=== PATIENT | male | born 1950 | race Caucasian/White ===

== ENCOUNTER 2017-04-11 07:02 | Observation (INO) | payer MEDICARE, OTHER ==
[2017-04-11] MEDS: Sodium Chloride 0.9% 500 ML IV ONE ×2 (08:59→09:57)
--- NOTE | 2017-04-11 09:05 | EDM.PDOC ---
ED HPI GENERAL MEDICAL PROBLEM - General Chief Complaint: Neuro Symptoms/Deficits Stated Complaint: POSSIBLE STROKE Time Seen by Provider: 04/11/17 08:00 Source of Information: Reports: Patient History Limitations: Reports: No Limitations - History of Present Illness INITIAL COMMENTS - FREE TEXT/NARRATIVE: According to patient's girl friend, Pt drink 2-3 Bacardi every day. But yesterday had drunk 5-6 drinks and as usual went to bed. He woke up in the morning and felt thigh in his throat and next thing patient was shaking hard and he was froathing form his mouth got stiff and thigh for few minutes and went limp and was unresponsive. Girl friend called 911. Pt was breathing but unresponsive for some time,. Later he woke up and was confused. By the time EMTwas at site, patient was awake, but appeared very confused. Vitals stable. C/o right upper back pain. According to patient,he claims that had several drinks last evening and then went out, ate some steak at local restaurant, and went to bed. The next thing he remembers is being around it program engagement director in the ambulance. He did not know what had happened. Onset: Today Onset Date: 04/11/17 Onset Time: 06:30 Severity: Mild Improves with: Reports: None Worsens with: Reports: None Associated Symptoms: Reports: Confusion, Seizure. Denies: Chest Pain, Cough, Fever/Chills, Headaches, Nausea/Vomiting, Rash, Shortness of Breath, Syncope, Weakness - Related Data Allergies Allergy/AdvReac Type Severity Reaction Status Date / Time No Known Allergies Allergy Verified 04/11/17 08:46 Home Meds: Home Meds Allopurinol [Allopurinol] 300 mg PO DAILY 04/11/17 [History] Aspirin 81 mg PO DAILY 04/11/17 [History] Lisinopril/Hydrochlorothiazide [Lisinopril-Hctz 10-12.5 mg Tab] 1 each PO DAILY 04/11/17 [History] Omeprazole 10 mg PO DAILY 04/11/17 [History] amLODIPine [Norvasc] 10 mg PO DAILY 04/11/17 [History] ED ROS GENERAL - Review of Systems Review Of Systems: See Below Constitutional: Denies: Fever, Chills HEENT: Denies: Eye Discharge, Sinus Problem, Throat Pain, Throat Swelling, Vertigo, Vision Change Respiratory: Denies: Shortness of Breath, Wheezing, Pleuritic Chest Pain, Cough , Sputum Cardiovascular: Denies: Chest Pain, Dyspnea on Exertion, Edema, Lightheadedness GI/Abdominal: Denies: Abdominal Pain, Constipation, Distension, Nausea, Vomiting Skin: Denies: Pruritis, Rash Neurological: Reports: Confusion, Seizure. Denies: Dizziness, Headache, Numbness, Paresthesia, Syncope, Tingling, Tremors, Trouble Speaking, Difficulty Walking Psychiatric: Denies: Agitation, Anxiety ED EXAM, GENERAL - Physical Exam Exam: See Below Exam Limited By: No Limitations General Appearance: Alert, WD/WN, No Apparent Distress, Other (presently pt is not confused) Eye Exam: Bilateral Eye: EOMI, PERRL Ears: Normal External Exam, Normal Canal, Hearing Grossly Normal, Normal TMs Ear Exam: Bilateral Ear: Auricle Normal, Canal Normal, TM normal Nose: Normal Inspection, Normal Mucosa, No Blood Throat/Mouth: Normal Inspection, Normal Lips, Normal Teeth, Normal Gums, Normal Oropharynx, Normal Voice, No Airway Compromise Head: Atraumatic, Normocephalic Neck: Normal Inspection, Supple, Non-Tender, Full Range of Motion Respiratory/Chest: No Respiratory Distress, Lungs Clear, Normal Breath Sounds, No Accessory Muscle Use, Chest Non-Tender Cardiovascular: Normal Peripheral Pulses, Regular Rate, Rhythm, No Edema, No Gallop, No JVD, No Murmur, No Rub GI/Abdominal: Normal Bowel Sounds, Soft, Non-Tender, No Organomegaly, No Distention, No Abnormal Bruit, No Mass Back Exam: Normal Inspection, Full Range of Motion, Muscle Spasm (rigth upper back) Extremities: Normal Inspection, Normal Range of Motion, Non-Tender, Normal Capillary Refill, No Pedal Edema Neurological: Alert, Oriented, CN II-XII Intact, Normal Cognition, Normal Gait, Normal Reflexes, No Motor/Sensory Deficits, Other (pt is not confused) Psychiatric: Normal Affect, Normal Mood Skin Exam: Warm, Dry, Intact, Normal Color, No Rash Course - Vital Signs Text/Narrative:: Pt has been alert and oriented in the emergency room. He is answering questions appropriately, but cannot remember thing like what had happened today morning. He does appear to have had a seizure episode. His alcohol level is 4. His sodium is 127 and chloride is 87, magnesium is 1.2 which is low. CBC is normal. Rest of the CMP is normal. His phosphorus, PT and PTT are normal, urine drug screen is negative. Pt's CT head appears normal. Pt was started on Normal saline and has receive 500 bolus already. Considering his low sodium , he will receive another 1 litre. His magnesium is low which does happen in alcoholic. Did start him on oral magnesium 400mg BID. As this is the first witnessed seizure, and this could be asso with his excessive drinking , low sodium or magnesium, we have replenished his electrolytes hence he has not been started on seizure medications. Did repeat Electrolyte after 2 litres of saline. His sodium is 125, Chloride up to 91. His creat is down to 1.1 within normal limits. As his sodium has dropped , probably from excessive fluid volume. Plan is to admit patient under observation and correct sodium slowly. Pt has not had any seizure over the past 4 hrs he has been in the emergency room. Will recheck BMP in the morning. Last Recorded V/S: Last Vital Signs Temp 98.1 F 04/11/17 08:34 Pulse 104 H 04/11/17 11:57 Resp 16 04/11/17 11:57 BP 119/56 L 04/11/17 11:57 Pulse Ox 98 04/11/17 11:57 - Orders/Labs/Meds Orders: Active Orders 24 hr Category Date Time Status Head wo Cont [CT] Stat Exams 04/11/17 07:56 Taken Magnesium Oxide Med 04/11/17 09:15 Active 400 mg PO BID Medication Orders Magnesium Oxide (Magnesium Oxide) 400 mg PO BID [facility] Last Admin: 04/11/17 09:36 Dose: 400 mg Labs: Laboratory Tests 04/11/17 04/11/17 04/11/17 Range/Units 08:12 08:12 08:12 WBC 10.3 (4.0-11.0) K/uL RBC 4.58 (4.50-6.50) M/uL Hgb 15.0 (13.0-18.0) g/dL Hct 40.6 (40.0-54.0) % MCV 89 (76-96) fL MCH 32.8 H (27.0-32.0) pg MCHC 36.9 H (31.0-35.0) g/dL RDW 13.4 (11.0-16.0) % Plt Count 249 (150-400) K/uL MPV 9.1 (6.0-10.0) fL Neut % (Auto) 81.4 H (45.0-70.0) % Lymph % (Auto) 11.0 L (20.0-40.0) % Catron % (Auto) 6.2 (3.0-10.0) % Eos % (Auto) 1.3 (1.0-5.0) % Baso % (Auto) 0.1 (0.0-0.5) % Neut # (Auto) 8.34 H (2.00-7.50) K/uL Lymph # (Auto) 1.13 L (1.50-4.00) K/uL Catron # (Auto) 0.64 (0.20-0.80) K/uL Eos # (Auto) 0.13 (0.04-0.40) K/uL Baso # (Auto) 0.01 L (0.02-0.10) K/uL PT 10.2 (9.0-11.5) sec INR 1.0 (1.0-3.5) APTT (27.0-35.0) SECONDS Sodium 127 L (136-145) mmol/L Potassium 3.5 (3.5-5.1) mmol/L Chloride 87 L* (98-107) mmol/L Carbon Dioxide 21.9 (21.0-32.0) mmol/L Anion Gap 21.6 H (5.0-15.0) mmol/L BUN 17 (8-26) mg/dL Creatinine 1.41 H (0.70-1.30) mg/dL Est Cr Clr Drug Dosing 49.18 mL/min Estimated GFR (MDRD) 50 L (>60) MLS/MIN BUN/Creatinine Ratio 12.1 (6-25) Glucose 109 H (74-100) mg/dL Calcium 8.9 (8.5-10.1) mg/dL Phosphorus (2.5-4.9) mg/dL Magnesium (1.8-2.4) mg/dL Total Bilirubin 0.7 (0.0-1.0) mg/dL AST 30 (15-37) U/L ALT 30 (12-78) U/L Alkaline Phosphatase 106 (46-116) U/L Total Protein 7.6 (6.4-8.2) g/dL Albumin 3.6 (3.4-5.0) g/dL Globulin 4.0 (2.2-4.2) g/dL Albumin/Globulin Ratio 0.9 (0.8-2.0) Urine Opiates Screen (NEGATIVE) Ur Oxycodone Screen (NEGATIVE) Urine Methadone Screen (NEGATIVE) U Acetaminophen Screen (NEGATIVE) Ur Barbiturates Screen (NEGATIVE) Ur Tricyclics Screen (NEGATIVE) Ur Phencyclidine Scrn (NEGATIVE) Ur Amphetamine Screen (NEGATIVE) U Methamphetamines Scrn (NEGATIVE) U Benzodiazepines Scrn (NEGATIVE) U Cocaine Metab Screen (NEGATIVE) U Marijuana (THC) Screen (NEGATIVE) Ethyl Alcohol (0.0-0.0) mg/dL 04/11/17 04/11/17 04/11/17 Range/Units 08:13 08:13 08:14 WBC (4.0-11.0) K/uL RBC (4.50-6.50) M/uL Hgb (13.0-18.0) g/dL Hct (40.0-54.0) % MCV (76-96) fL MCH (27.0-32.0) pg MCHC (31.0-35.0) g/dL RDW (11.0-16.0) % Plt Count (150-400) K/uL MPV (6.0-10.0) fL Neut % (Auto) (45.0-70.0) % Lymph % (Auto) (20.0-40.0) % Catron % (Auto) (3.0-10.0) % Eos % (Auto) (1.0-5.0) % Baso % (Auto) (0.0-0.5) % Neut # (Auto) (2.00-7.50) K/uL Lymph # (Auto) (1.50-4.00) K/uL Catron # (Auto) (0.20-0.80) K/uL Eos # (Auto) (0.04-0.40) K/uL Baso # (Auto) (0.02-0.10) K/uL PT (9.0-11.5) sec INR (1.0-3.5) APTT 25.8 L (27.0-35.0) SECONDS Sodium (136-145) mmol/L Potassium (3.5-5.1) mmol/L Chloride (98-107) mmol/L Carbon Dioxide (21.0-32.0) mmol/L Anion Gap (5.0-15.0) mmol/L BUN (8-26) mg/dL Creatinine (0.70-1.30) mg/dL Est Cr Clr Drug Dosing mL/min Estimated GFR (MDRD) (>60) MLS/MIN BUN/Creatinine Ratio (6-25) Glucose (74-100) mg/dL Calcium (8.5-10.1) mg/dL Phosphorus 2.8 (2.5-4.9) mg/dL Magnesium 1.3 L (1.8-2.4) mg/dL Total Bilirubin (0.0-1.0) mg/dL AST (15-37) U/L ALT (12-78) U/L Alkaline Phosphatase (46-116) U/L Total Protein (6.4-8.2) g/dL Albumin (3.4-5.0) g/dL Globulin (2.2-4.2) g/dL Albumin/Globulin Ratio (0.8-2.0) Urine Opiates Screen (NEGATIVE) Ur Oxycodone Screen (NEGATIVE) Urine Methadone Screen (NEGATIVE) U Acetaminophen Screen (NEGATIVE) Ur Barbiturates Screen (NEGATIVE) Ur Tricyclics Screen (NEGATIVE) Ur Phencyclidine Scrn (NEGATIVE) Ur Amphetamine Screen (NEGATIVE) U Methamphetamines Scrn (NEGATIVE) U Benzodiazepines Scrn (NEGATIVE) U Cocaine Metab Screen (NEGATIVE) U Marijuana (THC) Screen (NEGATIVE) Ethyl Alcohol (0.0-0.0) mg/dL 04/11/17 04/11/17 04/11/17 Range/Units 08:15 08:18 11:00 WBC (4.0-11.0) K/uL RBC (4.50-6.50) M/uL Hgb (13.0-18.0) g/dL Hct (40.0-54.0) % MCV (76-96) fL MCH (27.0-32.0) pg MCHC (31.0-35.0) g/dL RDW (11.0-16.0) % Plt Count (150-400) K/uL MPV (6.0-10.0) fL Neut % (Auto) (45.0-70.0) % Lymph % (Auto) (20.0-40.0) % Catron % (Auto) (3.0-10.0) % Eos % (Auto) (1.0-5.0) % Baso % (Auto) (0.0-0.5) % Neut # (Auto) (2.00-7.50) K/uL Lymph # (Auto) (1.50-4.00) K/uL Catron # (Auto) (0.20-0.80) K/uL Eos # (Auto) (0.04-0.40) K/uL Baso # (Auto) (0.02-0.10) K/uL PT (9.0-11.5) sec INR (1.0-3.5) APTT (27.0-35.0) SECONDS Sodium 125 L (136-145) mmol/L Potassium 3.8 (3.5-5.1) mmol/L Chloride 91 L (98-107) mmol/L Carbon Dioxide 24.3 (21.0-32.0) mmol/L Anion Gap 13.5 (5.0-15.0) mmol/L BUN 17 (8-26) mg/dL Creatinine 1.10 D (0.70-1.30) mg/dL Est Cr Clr Drug Dosing 63.05 mL/min Estimated GFR (MDRD) > 60 (>60) MLS/MIN BUN/Creatinine Ratio 15.5 (6-25) Glucose 107 H (74-100) mg/dL Calcium 8.3 L (8.5-10.1) mg/dL Phosphorus (2.5-4.9) mg/dL Magnesium (1.8-2.4) mg/dL Total Bilirubin (0.0-1.0) mg/dL AST (15-37) U/L ALT (12-78) U/L Alkaline Phosphatase (46-116) U/L Total Protein (6.4-8.2) g/dL Albumin (3.4-5.0) g/dL Globulin (2.2-4.2) g/dL Albumin/Globulin Ratio (0.8-2.0) Urine Opiates Screen Negative (NEGATIVE) Ur Oxycodone Screen Negative (NEGATIVE) Urine Methadone Screen Negative (NEGATIVE) U Acetaminophen Screen Negative (NEGATIVE) Ur Barbiturates Screen Negative (NEGATIVE) Ur Tricyclics Screen Negative (NEGATIVE) Ur Phencyclidine Scrn Negative (NEGATIVE) Ur Amphetamine Screen Negative (NEGATIVE) U Methamphetamines Scrn Negative (NEGATIVE) U Benzodiazepines Scrn Negative (NEGATIVE) U Cocaine Metab Screen Negative (NEGATIVE) U Marijuana (THC) Screen Negative (NEGATIVE) Ethyl Alcohol 4.0 H (0.0-0.0) mg/dL Meds: Medications Generic Name Dose Route Start Last Admin Trade Name Freq PRN Reason Stop Dose Admin Magnesium Oxide 400 mg 04/11/17 09:15 04/11/17 09:36 Magnesium Oxide PO 400 mg BID HEATHER Administration Discontinued Medications Generic Name Dose Route Start Last Admin Trade Name Freq PRN Reason Stop Dose Admin Cyclobenzaprine HCl 10 mg 04/11/17 09:29 04/11/17 09:37 Flexeril PO 04/11/17 09:30 10 mg ONETIME ONE Administration Cyclobenzaprine HCl Confirm 04/11/17 09:33 Flexeril Administered 04/11/17 09:34 Dose 10 mg .ROUTE .STK-MED ONE Sodium Chloride 500 mls @ 500 mls/hr 04/11/17 08:55 04/11/17 09:57 Normal Saline IV 04/11/17 09:54 500 mls/hr .BOLUS ONE Administration Ibuprofen 800 mg 04/11/17 09:09 04/11/17 09:37 Motrin PO 04/11/17 09:10 800 mg ONETIME ONE Administration Ibuprofen Confirm 04/11/17 09:11 Motrin Administered 04/11/17 09:12 Dose 800 mg .ROUTE .STK-MED ONE Departure - Departure Time of Disposition: 12:15 Disposition: Refer to Observation Condition: Fair Clinical Impression: Seizure, Hyponatremia, Hypomagnesemia - Discharge Information - Problem List & Annotations (1) Seizure SNOMED Code(s): 69603965 Code(s): R56.9 - UNSPECIFIED CONVULSIONS Status: Acute Current Visit: Yes (2) Hyponatremia SNOMED Code(s): 27341512 Code(s): E87.1 - HYPO-OSMOLALITY AND HYPONATREMIA Status: Acute Current Visit: Yes (3) Hypomagnesemia SNOMED Code(s): 786029902 Code(s): E83.42 - HYPOMAGNESEMIA Status: Acute Current Visit: Yes - Problem List Review Problem List Initiated/Reviewed/Updated: Yes - My Orders Last 24 Hours: My Active Orders 04/11/17 07:56 Head wo Cont [CT] Stat 04/11/17 09:15 Magnesium Oxide 400 mg PO BID - Assessment/Plan Admission H&P: Please use this note as an admission H&P Last 24 Hours: My Active Orders 04/11/17 07:56 Head wo Cont [CT] Stat 04/11/17 09:15 Magnesium Oxide 400 mg PO BID Assessment:: First Seizure episode Hyponatremia Hypomagnesemia Plan: Pt has been alert and oriented in the emergency room. He is answering questions appropriately, but cannot remember thing like what had happened today morning. He does appear to have had a seizure episode. His alcohol level is 4. His sodium is 127 and chloride is 87, magnesium is 1.2 which is low. CBC is normal. Rest of the CMP is normal. His phosphorus, PT and PTT are normal, urine drug screen is negative. Pt's CT head appears normal. Pt was started on Normal saline and has receive 500 bolus already. Considering his low sodium , he will receive another 1 litre. His magnesium is low which does happen in alcoholic. Did start him on oral magnesium 400mg BID. As this is the first witnessed seizure, and this could be asso with his excessive drinking , low sodium or magnesium, we have replenished his electrolytes hence he has not been started on seizure medications. Did repeat Electrolyte after 2 litres of saline. His sodium is 125, Chloride up to 91. His creat is down to 1.1 within normal limits. As his sodium has dropped , probably from excessive fluid volume. Plan is to admit patient under observation and correct sodium slowly. Pt has not had any seizure over the past 4 hrs he has been in the emergency room. Will recheck BMP in the morning.
[2017-04-11] MEDS ORDERED: Ibuprofen 800 MG Tab PO ONE (09:09)
[2017-04-11] MEDS ORDERED: Ibuprofen 800 MG Tab ONE (09:11)
[2017-04-11] MEDS ORDERED: Cyclobenzaprine 10 MG Tab PO ONE (09:29)
[2017-04-11] MEDS ORDERED: Cyclobenzaprine 10 MG Tab ONE ×2 (09:33→15:00)
[2017-04-11] MEDS: Magnesium Oxide 400 MG Tab PO SCH (09:36)
[2017-04-11] MEDS: Sodium Chloride 0.9% 1,000 ML IV SCH ×2 (12:00→20:35)
[2017-04-11] MEDS ORDERED: Magnesium Oxide 400 MG Tab ONE (15:00)
[2017-04-11] MEDS: Cyclobenzaprine 10 MG Tab PO PRN (15:32)
[2017-04-11] MEDS: Ibuprofen 800 MG Tab PO PRN (15:32)
[2017-04-11] MEDS ORDERED: LORazepam 2 MG/ML MDV IVPUSH ONE (19:00)
--- NOTE | 2017-04-11 19:05 | CT ---
DATE OF SERVICE: 04/11/2017 CLINICAL DATA: R/O stroke. UNENHANCED BRAIN CT Multislice acquisition through the brain without IV contrast was performed. No priors. There is diffuse cerebral atrophy. There are periventricular lucencies bilaterally consistent with small vessel ischemic change. No masses or mass effect. No intracranial hemorrhage. No evidence of acute or subacute infarct. There is mucosal thickening in the frontal, ethmoid, sphenoid, and maxillary sinuses consistent with chronic sinusitis. No osseous abnormalities. IMPRESSION: No acute intracranial abnormalities. [id number] [facility]
[2017-04-11] MEDS ORDERED: Fosphenytoin 1,250 MG.PE in Sodium Chloride 0.9% 50 ML IV ONE (19:38)
[2017-04-11] MEDS ORDERED: Naloxone 2 MG/2 ML Syringe ONE (19:47)
--- NOTE | 2017-04-11 19:54 | PCM.PN ---
- General Info Date of Service: 04/11/17 (7:15) Subjective Update: Pt's Caregiver called as he is having a seizure. Apparently Pt was in clonic posture when I came into the room with hoarse load breathing and unresponsive. And froathing from the mouth. Ativan 2mg IV was order and given. After ativan Pt was limp and breathing normal. Still not out out of seizure. Did repeat second dose of Ativan 2mg IV. I did contact , Neurologist information coder at [facility] and discuss patient with him. His recommendation was, as this is the second episodes of witnessed seizure, to start patient on fosphenytoin, and correct the electrolyte abnormality. Pt was moved [place] [facility] and placed on support services coordinator and fosphenytoin started at 15mg per/KG body weight, total of 1250mg given over 150mg/minute rate. Pt will be placed on cardiac monitoring over night. Will start oral phenytoin in the morning. - Review of Systems General: Reports: Other (unobtainable due to unresponsiveness) - Patient Data Vitals - most recent: Last Vital Signs Temp 98.1 F 04/11/17 08:34 Pulse 109 H 04/11/17 16:21 Resp 16 04/11/17 16:21 BP 118/80 04/11/17 16:21 Pulse Ox 96 04/11/17 16:21 Weight - most recent: 83.915 kg I&O - last 24 hours: Intake & Output 04/11/17 04/11/17 04/11/17 06:59 14:59 22:59 Output Total 1250 500 Balance -1250 -500 Med Orders - Current: Current Medications Allopurinol (Zyloprim) 300 mg PO DAILY [facility] Amlodipine Besylate (Norvasc) 10 mg PO DAILY [facility] Aspirin (Aspirin) 81 mg PO DAILY [facility] Cyclobenzaprine HCl (Flexeril) 10 mg PO TID PRN PRN Reason: Muscle Spasm Last Admin: 04/11/17 15:32 Dose: 10 mg Sodium Chloride (Normal Saline) 1,000 mls @ 125 mls/hr IV ASDIRECTED HEATHER Last Admin: 04/11/17 12:00 Dose: 125 mls/hr Fosphenytoin Sodium 1,250 mg. (pe/ Sodium Chloride) 75 mls @ 150 mls/hr IV NOW ONE Stop: 04/11/17 20:07 Ibuprofen (Motrin) 800 mg PO Q8H PRN PRN Reason: Pain Last Admin: 04/11/17 15:32 Dose: 800 mg Lorazepam (Ativan) 2 mg IVPUSH ONETIME ONE Stop: 04/11/17 19:16 Magnesium Oxide (Magnesium Oxide) 400 mg PO BID HEATHER Last Admin: 04/11/17 09:36 Dose: 400 mg Non-Formulary Medication (Lisinopril/Hydrochlorothiazide [Lisinopril-Hctz 10- 12.5 Mg Tab]) 1 each PO DAILY [facility] Non-Formulary Medication (Omeprazole [Omeprazole]) 10 mg PO DAILY [facility] Discontinued Medications Cyclobenzaprine HCl (Flexeril) 10 mg PO ONETIME ONE Stop: 04/11/17 09:30 Last Admin: 04/11/17 09:37 Dose: 10 mg Cyclobenzaprine HCl (Flexeril) Confirm Administered Dose 10 mg .ROUTE .STK-MED ONE Stop: 04/11/17 09:34 Last Admin: 04/11/17 13:37 Dose: Not Given Cyclobenzaprine HCl (Flexeril) 150 mg .ROUTE .STK-MED ONE Stop: 04/11/17 15:01 Sodium Chloride (Normal Saline) 500 mls @ 500 mls/hr IV .BOLUS ONE Stop: 04/11/17 09:54 Last Admin: 04/11/17 09:57 Dose: 500 mls/hr Ibuprofen (Motrin) 800 mg PO ONETIME ONE Stop: 04/11/17 09:10 Last Admin: 04/11/17 09:37 Dose: 800 mg Ibuprofen (Motrin) Confirm Administered Dose 800 mg .ROUTE .STK-MED ONE Stop: 04/11/17 09:12 Last Admin: 04/11/17 13:36 Dose: Not Given Lorazepam (Ativan) 2 mg IVPUSH ONETIME ONE Stop: 04/11/17 19:01 Magnesium Oxide (Magnesium Oxide) 1,600 mg .ROUTE .STK-MED ONE Stop: 04/11/17 15:01 - Exam Quality Assessment: supplemental oxygen General: alert, oriented HEENT: Pupils equal, Pupils reactive, EOMI, Mucous membr. moist/pink Neck: supple Lungs: Clear to auscultation, Normal respiratory effort Cardiovascular: Regular Rate, Regular Rhythm Abdomen: bowel sounds present, soft, no tenderness, no distension Neurological: other (unrepsonive ) - Problem List & Annotations (1) Seizure SNOMED Code(s): 97422505 Code(s): R56.9 - UNSPECIFIED CONVULSIONS Status: Acute Current Visit: Yes (2) Hyponatremia SNOMED Code(s): 05105126 Code(s): E87.1 - HYPO-OSMOLALITY AND HYPONATREMIA Status: Acute Current Visit: Yes (3) Hypomagnesemia SNOMED Code(s): 638898909 Code(s): E83.42 - HYPOMAGNESEMIA Status: Acute Current Visit: Yes - Problem List Review Problem List Initiated/Reviewed/Updated: Yes - My Orders Last 24 Hours: My Active Orders 04/11/17 12:21 Patient Status [ADT] Routine Bedrest Bathroom Privileges [RC] ASDIRECTED Oxygen Therapy [RC] PRN VTE/DVT Education [RC] Per Unit Routine Vital Signs [RC] Q4H Resuscitation Status Routine 04/11/17 12:23 Ibuprofen [Motrin] 800 mg PO Q8H PRN 04/11/17 12:25 Cyclobenzaprine [Flexeril] 10 mg PO TID PRN 04/11/17 12:26 Seizure Precautions [OM.PC] Routine 04/11/17 12:30 Sodium Chloride 0.9% [Normal Saline] 1,000 ml IV ASDIRECTED 04/11/17 14:52 CULTURE MRSA SURVEY [RM] Routine 04/11/17 19:15 LORazepam [Ativan] 2 mg IVPUSH ONETIME ONE 04/11/17 19:25 BASIC METABOLIC PANEL,BMP [CHEM] Routine 04/11/17 19:27 ETOH [ETHANOL BLOOD MEDICAL] [CHEM] Stat 04/11/17 19:38 TROPONIN I [CHEM] Stat Fosphenytoin [Cerebyx] 1,250 mg.pe Sodium Chloride 0.9% [Normal Saline] 50 ml IV NOW 04/11/17 Lunch Regular Diet [DIET] 04/12/17 07:30 BASIC METABOLIC PANEL,BMP [CHEM] Routine MAGNESIUM [CHEM] Routine 04/12/17 08:00 Allopurinol [Zyloprim] 300 mg PO DAILY Aspirin 81 mg PO DAILY Lisinopril/Hydrochlorothiazide [Lisinopril-Hctz 10-12.5 mg Tab] 1 each PO DAILY Omeprazole [Omeprazole] 10 mg PO DAILY amLODIPine [Norvasc] 10 mg PO DAILY - Assessment Assessment:: Seizure episode recurrent - Plan Plan:: Pt was moved [place] [facility] and placed on support services coordinator and fosphenytoin started at 15mg per/KG body weight, total of 1250mg given over 150mg/minute rate. Pt will be placed on cardiac monitoring over night. Will start oral phenytoin in the morning. His Sodium is 131 and chloride is 96 improving. His magnesium was low in the morning now that he cannot take oral. will given him Iv magnesium tonight. repeat BMP and Magnesium in am.
[2017-04-11] MEDS ORDERED: Magnesium Sulfate/Water 2 GM in Premix Bag 1 BAG IV ONE (20:35)
[2017-04-11] MEDS: LORazepam 2 MG/ML MDV IVPUSH ONE (20:36)
[2017-04-11] MEDS ORDERED: LORazepam 2 MG/ML MDV ONE (22:18)
[2017-04-11] MEDS ORDERED: LORazepam 2 MG/ML MDV IVPUSH PRN ×2 (22:52→23:59)
[2017-04-11] MEDS ORDERED: LORazepam 2 MG/ML MDV IV SCH (23:45)
[2017-04-11] MEDS ORDERED: MVI, Adult with Vitamin K 10 ML, Thiamine 100 MG in Sodium Chloride 0.9% 1,000 ML IV ONE ×3 (23:52)
[2017-04-12] MEDS ORDERED: Thiamine 200 MG/2 ML MDV ONE (00:06)
[2017-04-12] MEDS: LORazepam 2 MG/ML MDV IVPUSH ONE (06:00)
[2017-04-12] MEDS ORDERED: Non-Formulary Medication 1 Each (Omeprazole [Omeprazole] 10 MG) PO SCH (08:00)
[2017-04-12] MEDS: Sodium Chloride 0.9% 1,000 ML IV SCH (09:30)
[2017-04-12] MEDS: Magnesium Oxide 400 MG Tab PO SCH ×3 (09:46→20:55)
[2017-04-12] MEDS: Ibuprofen 800 MG Tab PO PRN (12:26)
[2017-04-12] MEDS: Phenytoin 100 MG Cap.ER PO SCH (12:28)
--- NOTE | 2017-04-12 17:08 | PCM.PN ---
- General Info Date of Service: 04/12/17 Subjective Update: Pt has not had any more seizures. Pt did go into Alcohol withdrawal last night and hence was placed on ativan protocol with CIWAS scoring. Pt did score 11-13 all night. today morning pt is very drowsy. He is arousable and does respond to verbal commands.His heart rate is stable around 80s and has remained so all day. Blood pressure stable. on Iv fluids. Functional Status: Reports: tolerating diet, urinating - Review of Systems General: Denies: Fever, Weakness HEENT: Denies: sinus congestion, sore throat Pulmonary: Denies: shortness of breath, cough, sputum, wheezing Cardiovascular: Denies: Chest Pain, Lightheadedness Gastrointestinal: Denies: Abdominal pain, Nausea, Vomiting Genitourinary: Denies: frequency, burning Musculoskeletal: Denies: joint pain, joint swelling Skin: Denies: pruritis, rash Neurological: Denies: Confusion, Dizziness, Headache, Numbness, Seizure, Syncope , Tingling Psychiatric: Denies: depression, agitation, cravings - Patient Data Vitals - most recent: Last Vital Signs Temp 97.7 F 04/12/17 15:59 Pulse 84 04/12/17 15:59 Resp 18 04/12/17 15:59 BP 100/56 L 04/12/17 15:59 Pulse Ox 98 04/12/17 15:59 Weight - most recent: 83.915 kg Lab Results last 24 hrs: Laboratory Results - last 24 hr 04/11/17 04/11/17 04/11/17 Range/Units 19:40 19:40 19:40 Sodium 131 L (136-145) mmol/L Potassium 3.7 (3.5-5.1) mmol/L Chloride 96 L (98-107) mmol/L Carbon Dioxide 19.9 L (21.0-32.0) mmol/L Anion Gap 18.8 H (5.0-15.0) mmol/L BUN 13 D (8-26) mg/dL Creatinine 1.41 H D (0.70-1.30) mg/dL Est Cr Clr Drug Dosing 49.18 mL/min Estimated GFR (MDRD) 50 L (>60) MLS/MIN BUN/Creatinine Ratio 9.2 (6-25) Glucose 117 H (74-100) mg/dL Calcium 8.6 (8.5-10.1) mg/dL Magnesium (1.8-2.4) mg/dL Troponin I < 0.017 (0.000-0.060) ng/mL Ethyl Alcohol 0.0 (0.0-0.0) mg/dL 04/12/17 04/12/17 Range/Units 07:10 13:15 Sodium 132 L 134 L (136-145) mmol/L Potassium 3.4 L 3.3 L (3.5-5.1) mmol/L Chloride 99 98 (98-107) mmol/L Carbon Dioxide 25.7 D 28.2 (21.0-32.0) mmol/L Anion Gap 10.7 11.1 (5.0-15.0) mmol/L BUN 8 D 7 L (8-26) mg/dL Creatinine 0.85 D 0.86 (0.70-1.30) mg/dL Est Cr Clr Drug Dosing 81.59 80.64 mL/min Estimated GFR (MDRD) > 60 > 60 (>60) MLS/MIN BUN/Creatinine Ratio 9.4 8.1 (6-25) Glucose 103 H 104 H (74-100) mg/dL Calcium 8.5 8.4 L (8.5-10.1) mg/dL Magnesium 1.6 L 2.0 (1.8-2.4) mg/dL Troponin I (0.000-0.060) ng/mL Ethyl Alcohol (0.0-0.0) mg/dL Med Orders - Current: Current Medications Allopurinol (Zyloprim) 300 mg PO DAILY [facility] Amlodipine Besylate (Norvasc) 10 mg PO DAILY [facility] Aspirin (Aspirin) 81 mg PO DAILY [facility] Chlordiazepoxide HCl (Librium) 10 mg PO TID PRN PRN Reason: Agitation Cyclobenzaprine HCl (Flexeril) 10 mg PO TID PRN PRN Reason: Muscle Spasm Last Admin: 04/11/17 15:32 Dose: 10 mg Sodium Chloride (Normal Saline) 1,000 mls @ 125 mls/hr IV ASDIRECTED [facility] Last Admin: 04/12/17 09:30 Dose: 125 mls/hr Ibuprofen (Motrin) 800 mg PO Q8H PRN PRN Reason: Pain Last Admin: 04/12/17 12:26 Dose: 800 mg Lorazepam (Ativan) 0 mg IV ASDIRECTED [facility] PRN Reason: Protocol Last Admin: 04/12/17 08:00 Dose: 1 mg Magnesium Oxide (Magnesium Oxide) 400 mg PO BID [facility] Last Admin: 04/12/17 09:46 Dose: Not Given Magnesium Sulfate/Dextrose (Magnesium 1 Gm In D5w 100 Ml) 1 gm IV DAILY [facility] Last Admin: 04/12/17 09:48 Dose: 1 gm Non-Formulary Medication (Lisinopril/Hydrochlorothiazide [Lisinopril-Hctz 10- 12.5 Mg Tab]) 1 each PO DAILY [facility] Non-Formulary Medication (Omeprazole [Omeprazole]) 10 mg PO DAILY [facility] Phenytoin Sodium (Phenytoin) 300 mg PO DAILY [facility] Last Admin: 04/12/17 12:28 Dose: 300 mg Discontinued Medications Cyclobenzaprine HCl (Flexeril) 10 mg PO ONETIME ONE Stop: 04/11/17 09:30 Last Admin: 04/11/17 09:37 Dose: 10 mg Cyclobenzaprine HCl (Flexeril) Confirm Administered Dose 10 mg .ROUTE .STK-MED ONE Stop: 04/11/17 09:34 Last Admin: 04/11/17 13:37 Dose: Not Given Cyclobenzaprine HCl (Flexeril) 150 mg .ROUTE .STK-MED ONE Stop: 04/11/17 15:01 Sodium Chloride (Normal Saline) 500 mls @ 500 mls/hr IV .BOLUS ONE Stop: 04/11/17 09:54 Last Admin: 04/11/17 09:57 Dose: 500 mls/hr Fosphenytoin Sodium 1,250 mg. (pe/ Sodium Chloride) 75 mls @ 150 mls/hr IV NOW ONE Stop: 04/11/17 20:07 Last Admin: 04/11/17 20:00 Dose: 150 mls/hr Magnesium Sulfate 2 gm/ Premix 50 mls @ 25 mls/hr IV ONETIME ONE Stop: 04/11/17 22:34 Last Admin: 04/11/17 21:31 Dose: Not Given Magnesium Sulfate/Dextrose (Magnesium 1 Gm In D5w 100 Ml) 100 mls @ 100 mls/hr IV Q1H [facility] Stop: 04/11/17 22:59 Last Admin: 04/11/17 22:49 Dose: 100 mls/hr Multivitamins/Minerals 10 ml/Thiamine HCl 100 mg/ Sodium Chloride 1,011 mls @ 125 mls/hr IV ONETIME ONE Stop: 04/12/17 07:57 Last Admin: 04/12/17 00:31 Dose: 125 mls/hr Ibuprofen (Motrin) 800 mg PO ONETIME ONE Stop: 04/11/17 09:10 Last Admin: 04/11/17 09:37 Dose: 800 mg Ibuprofen (Motrin) Confirm Administered Dose 800 mg .ROUTE .STK-MED ONE Stop: 04/11/17 09:12 Last Admin: 04/11/17 13:36 Dose: Not Given Lorazepam (Ativan) 2 mg IVPUSH ONETIME ONE Stop: 04/11/17 19:01 Last Admin: 04/11/17 21:32 Dose: Not Given Lorazepam (Ativan) 2 mg IVPUSH ONETIME ONE Stop: 04/11/17 19:16 Last Admin: 04/12/17 06:00 Dose: 2 mg Lorazepam (Ativan) Confirm Administered Dose 2 mg .ROUTE .STK-MED ONE Stop: 04/11/17 22:19 Last Admin: 04/11/17 22:51 Dose: 2 mg Lorazepam (Ativan) 1 mg IVPUSH Q4H PRN PRN Reason: Withdrawal Symptoms Lorazepam (Ativan) 1 mg IVPUSH Q2HR PRN PRN Reason: Withdrawal Symptoms Last Admin: 04/12/17 05:30 Dose: 1 mg Magnesium Oxide (Magnesium Oxide) 1,600 mg .ROUTE .STK-MED ONE Stop: 04/11/17 15:01 Naloxone HCl (Narcan) Confirm Administered Dose 2 mg .ROUTE .STK-MED ONE Stop: 04/11/17 19:48 Thiamine HCl (Vitamin B-1) Confirm Administered Dose 200 mg .ROUTE .STK-MED ONE Stop: 04/12/17 00:07 Last Admin: 04/12/17 00:33 Dose: 200 mg - Exam General: alert, oriented, other (very drowsy from possible ativan inejctions) HEENT: Pupils equal, Pupils reactive, EOMI, Mucous membr. moist/pink Neck: supple Lungs: Clear to auscultation, Normal respiratory effort Cardiovascular: Regular Rate, Regular Rhythm Abdomen: bowel sounds present, soft, no tenderness, no distension Extremities: no edema Peripheral Pulses: 2+: Radial (L), Radial (R) Skin: warm, dry, intact Neurological: no new focal deficit, normal speech, normal tone, other (pt is alert and responds to verbal commands, but very sleepy) Psy/Mental Status: alert - Problem List & Annotations (1) Seizure SNOMED Code(s): 85623027 Code(s): R56.9 - UNSPECIFIED CONVULSIONS Status: Acute Current Visit: Yes (2) Hyponatremia SNOMED Code(s): 45130025 Code(s): E87.1 - HYPO-OSMOLALITY AND HYPONATREMIA Status: Acute Current Visit: Yes (3) Hypomagnesemia SNOMED Code(s): 878529750 Code(s): E83.42 - HYPOMAGNESEMIA Status: Acute Current Visit: Yes - Problem List Review Problem List Initiated/Reviewed/Updated: Yes - My Orders Last 24 Hours: My Active Orders 04/11/17 19:20 CULTURE MRSA SURVEY [RM] Routine 04/11/17 19:56 Cardiac Monitoring [RC] CONTINUOUS 04/11/17 20:00 Insert Obrien Catheter [Insert Urinary Catheter] [OM.PC] Q24H 04/11/17 23:27 CIWAA Assessment [RC] 00,02,04,08,10,12,14,16,18,20,22 04/11/17 23:39 Notify Provider [RC] PRN 04/11/17 23:45 LORazepam [Ativan] See Protocol IV ASDIRECTED 04/11/17 23:51 Notify Provider [RC] PRN 04/11/17 23:52 Notify Provider [RC] PRN 04/12/17 08:00 Allopurinol [Zyloprim] 300 mg PO DAILY [facility] 81 mg PO DAILY Lisinopril/Hydrochlorothiazide [Lisinopril-Hctz 10-12.5 mg Tab] 1 each PO DAILY Omeprazole [Omeprazole] 10 mg PO DAILY amLODIPine [Norvasc] 10 mg PO DAILY 04/12/17 08:49 Magnesium Sulfate/D5W [Magnesium 1 GM in D5W 100 ML] 1 gm IV DAILY 04/12/17 09:00 Phenytoin 300 mg PO DAILY 04/12/17 10:02 Urinary Catheter Assessment [RC] ASDIRECTED 04/12/17 16:59 chlordiazePOXIDE [Librium] 10 mg PO TID PRN - Assessment Assessment:: Seizure disorder ETOH withdrawal Hyponatremia Hypomagnesemia - Plan Plan:: Pt has not had any more seizure episodes over night. He did have some ETOH withdrawal tremors and agitation last night. Was placed on ativan protocol with CIWAS scoring. All night he scored around 11-13. Today morning patient's BP is stable and also his heart rate is down form 110 down into 80s. Pt flores been started on dilantin ER 300mg orally today. He is very drowsy on clinical exam, he is arousable and does respond appropriately, but falls asleep. His magnesium was at 1.6 in the morning, did receive another 1 gm of magnesium today morning. In the afternoon his BMP and Magnesium are within normal limits and his vitals are stable.. IV discontinued. DID encourage pt to get up and walk. He can get up and walk, responds appropriately, but is very drowsy. Hence pat has been moved to regular floor and will monitor him over night to make sure he is seizure free for 24 hrs and also could be more awake before discharge. Will reassess in the morning. Also I have placed patient on librium 10mg TID prn for alcohol withdrawals.
[2017-04-12] MEDS: Aspirin 81 MG Tab.Chew PO SCH (18:40)
[2017-04-12] MEDS: LISINOPRIL PO SCH (18:40)
[2017-04-12] MEDS: HYDROCHLOROTHIAZIDE PO SCH (18:40)
[2017-04-12] MEDS: amLODIPine 10 MG Tab PO SCH (18:40)
[2017-04-12] MEDS: Allopurinol 300 MG Tab PO SCH (18:41)
[2017-04-12] MEDS: Cyclobenzaprine 10 MG Tab PO PRN (23:14)
--- NOTE | 2017-04-13 08:29 | PCM.DCSUM1 ---
Discharge Summary - Hospital Course Free Text/Narrative:: Pt presented to emergency in Post-ictal phase of seizures. Pt was confused, but gradually improved in the emergency room. His lab work showed, low sodium of 125 , magnesium of 1.3 and also ETOH level of 4. At this point this was patient's first episode of seizures and he has not had any head injury in the past or seizures. HE was admitted for recorrection of his sodium and magnesium. He did receive 2 litres normal saline bolus and place on NS at 125cc/hr. Also he did receive IV magnesium. Pt was doing well through the day of admission. On the evening of the day of admission, around 7 PM, pt had a Tonic -Clonic convulsion in the hospital, which was witnessed by myself. At this point his Sodium was 131 and his magnesium was up to 1.6. Pt did receive 2 doses of Ativan 2mg IV in 30 minutes. Considering this to be the second episode, I did contact the neurologist at [facility]. His recommendation was to start patient on Fosphenytoin IV and start Dilantin orally and discharge. Pt was moved into Intermediate care unit, placed on iron miner blasting, started on fosphenytoin 1250mg iv per protocol. The same night Pt did go into ETOH withdrawal with agitation and tremors.Pt was placed on CIWAS scoring and did receive few doses of ativan. Day1 Pt was doing fine his Sodium and magnesium were within normal limits. Pt had no tremors. He was very sedated, but was arousable and responded appropriately to verbal commands. Had nor more seizures. I did monitor patient for 24 hrs of seizure free time. On day 2 morning, Pt is awake and alert. Vitals are stable. Feels well rested. awake alert and his physical exam is normal,.He has had right upper back spasm since admission, which is improving. At this point, pt has been planned for discharge. Brief History: Pt admitted with sizure episode on Wednesday morning. Kindly see the H&P for details. - Discharge Data Discharge Date: 04/13/17 Discharge Disposition: Home, Self-Care 01 Condition: Good - Discharge Diagnosis/Problem(s) (1) Seizure SNOMED Code(s): 71869347 ICD Code: R56.9 - UNSPECIFIED CONVULSIONS Status: Acute Current Visit: Yes (2) Hyponatremia SNOMED Code(s): 04454953 ICD Code: E87.1 - HYPO-OSMOLALITY AND HYPONATREMIA Status: Acute Current Visit: Yes (3) Hypomagnesemia SNOMED Code(s): 445853294 ICD Code: E83.42 - HYPOMAGNESEMIA Status: Acute Current Visit: Yes - Patient Instructions Diet: Heart Healthy Diet Fluid Restriction: 1500 mL Activity: As Tolerated Driving: Do Not Drive Showering/Bathing: May Shower Other/Special Instructions: Continue home meds. No alcohol until evaluated by Primary care physician. Dilantin ER 300mg daily,. MAgnesium oxide 400mg BID. Flexeril 10mg TID PRN for back spasm. Needs MRI and EEG for further workup. Need Neurology Consult. Do not drive until clear by his Primary care provider or Neurologist. Followup with primary care provider in 1-2 days. - Discharge Plan Prescriptions/Med Rec: Magnesium Oxide 400 mg PO BID #10 tablet Phenytoin 300 mg PO DAILY #30 cap.er Home Medications: Home Meds Allopurinol 300 mg PO DAILY 04/11/17 [History] Aspirin 81 mg PO DAILY 04/11/17 [History] Cyclobenzaprine [Flexeril] 10 mg PO TID PRN 04/11/17 [History] Lisinopril/Hydrochlorothiazide [Lisinopril-Hctz 10-12.5 mg Tab] 1 each PO DAILY 04/11/17 [History] Magnesium Oxide 400 mg PO BID 04/11/17 [History] Omeprazole 10 mg PO DAILY 04/11/17 [History] amLODIPine [Norvasc] 10 mg PO DAILY 04/11/17 [History] Magnesium Oxide 400 mg PO BID #10 tablet 04/13/17 [Rx] Phenytoin 300 mg PO DAILY #30 cap.er 04/13/17 [Rx] - Discharge Summary/Plan Comment DC Time >30 min.: Yes - General Info Date of Service: 04/13/17 Functional Status: Reports: pain controlled, tolerating diet, ambulating, urinating - Review of Systems General: Denies: Fever, Weakness, Fatigue HEENT: Denies: sinus congestion, sore throat, visual changes Pulmonary: Denies: shortness of breath, pleuritic chest pain, hemoptysis, wheezing Cardiovascular: Denies: Chest Pain, Palpitations, Lightheadedness Gastrointestinal: Denies: Abdominal pain, Hematochezia, Melena, Nausea, Vomiting Genitourinary: Denies: dysuria, frequency Musculoskeletal: Denies: joint pain, joint swelling Skin: Denies: cyanosis, pruritis, rash Neurological: Denies: Confusion, Dizziness, Headache, Numbness, Paresthesia, Syncope, Tingling, Tremors, Difficulty Walking, Weakness, Gait Disturbance Psychiatric: Denies: confusion, depression, agitation, cravings - Patient Data Vitals - Most Recent: Last Vital Signs Temp 97.8 F 04/13/17 04:00 Pulse 83 04/13/17 04:00 Resp 18 04/13/17 04:00 BP 103/90 04/13/17 04:00 Pulse Ox 100 04/13/17 04:00 Weight - Most Recent: 83.915 kg I&O - Last 24 hours: Intake & Output 04/12/17 04/13/17 04/13/17 22:59 06:59 14:59 Intake Total 250 Balance 250 Lab Results - Last 24 hrs: Laboratory Results - last 24 hr 04/12/17 Range/Units 13:15 Sodium 134 L (136-145) mmol/L Potassium 3.3 L (3.5-5.1) mmol/L Chloride 98 (98-107) mmol/L Carbon Dioxide 28.2 (21.0-32.0) mmol/L Anion Gap 11.1 (5.0-15.0) mmol/L BUN 7 L (8-26) mg/dL Creatinine 0.86 (0.70-1.30) mg/dL Est Cr Clr Drug Dosing 80.64 mL/min Estimated GFR (MDRD) > 60 (>60) MLS/MIN BUN/Creatinine Ratio 8.1 (6-25) Glucose 104 H (74-100) mg/dL Calcium 8.4 L (8.5-10.1) mg/dL Magnesium 2.0 (1.8-2.4) mg/dL Med Orders - Current: Current Medications Allopurinol (Zyloprim) 300 mg PO DAILY [facility] Last Admin: 04/12/17 18:41 Dose: Not Given Amlodipine Besylate (Norvasc) 10 mg PO DAILY [facility] Last Admin: 04/12/17 18:40 Dose: Not Given Aspirin (Aspirin) 81 mg PO DAILY [facility] Last Admin: 04/12/17 18:40 Dose: Not Given Chlordiazepoxide HCl (Librium) 10 mg PO TID PRN PRN Reason: Agitation Cyclobenzaprine HCl (Flexeril) 10 mg PO TID PRN PRN Reason: Muscle Spasm Last Admin: 04/12/17 23:14 Dose: 10 mg Sodium Chloride (Normal Saline) 1,000 mls @ 125 mls/hr IV ASDIRECTED [facility] Last Admin: 04/12/17 09:30 Dose: 125 mls/hr Ibuprofen (Motrin) 800 mg PO Q8H PRN PRN Reason: Pain Last Admin: 04/12/17 12:26 Dose: 800 mg Lorazepam (Ativan) 0 mg IV ASDIRECTED [facility] PRN Reason: Protocol Last Admin: 04/12/17 08:00 Dose: 1 mg Magnesium Oxide (Magnesium Oxide) 400 mg PO BID [facility] Last Admin: 04/12/17 20:55 Dose: 400 mg Magnesium Sulfate/Dextrose (Magnesium 1 Gm In D5w 100 Ml) 1 gm IV DAILY [facility] Last Admin: 04/12/17 09:48 Dose: 1 gm Non-Formulary Medication (Lisinopril/Hydrochlorothiazide [Lisinopril-Hctz 10- 12.5 Mg Tab]) 1 each PO DAILY [facility] Last Admin: 04/12/17 18:40 Dose: Not Given Non-Formulary Medication (Omeprazole [Omeprazole]) 10 mg PO DAILY [facility] Last Admin: 04/12/17 18:40 Dose: Not Given Phenytoin Sodium (Phenytoin) 300 mg PO DAILY [facility] Last Admin: 04/12/17 12:28 Dose: 300 mg Discontinued Medications Cyclobenzaprine HCl (Flexeril) 10 mg PO ONETIME ONE Stop: 04/11/17 09:30 Last Admin: 04/11/17 09:37 Dose: 10 mg Cyclobenzaprine HCl (Flexeril) Confirm Administered Dose 10 mg .ROUTE .STK-MED ONE Stop: 04/11/17 09:34 Last Admin: 04/11/17 13:37 Dose: Not Given Cyclobenzaprine HCl (Flexeril) 150 mg .ROUTE .STK-MED ONE Stop: 04/11/17 15:01 Sodium Chloride (Normal Saline) 500 mls @ 500 mls/hr IV .BOLUS ONE Stop: 04/11/17 09:54 Last Admin: 04/11/17 09:57 Dose: 500 mls/hr Fosphenytoin Sodium 1,250 mg. (pe/ Sodium Chloride) 75 mls @ 150 mls/hr IV NOW ONE Stop: 04/11/17 20:07 Last Admin: 04/11/17 20:00 Dose: 150 mls/hr Magnesium Sulfate 2 gm/ Premix 50 mls @ 25 mls/hr IV ONETIME ONE Stop: 04/11/17 22:34 Last Admin: 04/11/17 21:31 Dose: Not Given Magnesium Sulfate/Dextrose (Magnesium 1 Gm In D5w 100 Ml) 100 mls @ 100 mls/hr IV Q1H [facility] Stop: 04/11/17 22:59 Last Admin: 04/11/17 22:49 Dose: 100 mls/hr Multivitamins/Minerals 10 ml/Thiamine HCl 100 mg/ Sodium Chloride 1,011 mls @ 125 mls/hr IV ONETIME ONE Stop: 04/12/17 07:57 Last Admin: 04/12/17 00:31 Dose: 125 mls/hr Ibuprofen (Motrin) 800 mg PO ONETIME ONE Stop: 04/11/17 09:10 Last Admin: 04/11/17 09:37 Dose: 800 mg Ibuprofen (Motrin) Confirm Administered Dose 800 mg .ROUTE .STK-MED ONE Stop: 04/11/17 09:12 Last Admin: 04/11/17 13:36 Dose: Not Given Lorazepam (Ativan) 2 mg IVPUSH ONETIME ONE Stop: 04/11/17 19:01 Last Admin: 04/11/17 21:32 Dose: Not Given Lorazepam (Ativan) 2 mg IVPUSH ONETIME ONE Stop: 04/11/17 19:16 Last Admin: 04/12/17 06:00 Dose: 2 mg Lorazepam (Ativan) Confirm Administered Dose 2 mg .ROUTE .STK-MED ONE Stop: 04/11/17 22:19 Last Admin: 04/11/17 22:51 Dose: 2 mg Lorazepam (Ativan) 1 mg IVPUSH Q4H PRN PRN Reason: Withdrawal Symptoms Lorazepam (Ativan) 1 mg IVPUSH Q2HR PRN PRN Reason: Withdrawal Symptoms Last Admin: 04/12/17 05:30 Dose: 1 mg Magnesium Oxide (Magnesium Oxide) 1,600 mg .ROUTE .STK-MED ONE Stop: 04/11/17 15:01 Naloxone HCl (Narcan) Confirm Administered Dose 2 mg .ROUTE .STK-MED ONE Stop: 04/11/17 19:48 Last Admin: 04/12/17 21:04 Dose: Not Given Thiamine HCl (Vitamin B-1) Confirm Administered Dose 200 mg .ROUTE .STK-MED ONE Stop: 04/12/17 00:07 Last Admin: 04/12/17 00:33 Dose: 200 mg - Exam General: Reports: alert, oriented HEENT: Reports: Pupils equal, Pupils reactive, EOMI, Mucous membr. moist/pink Neck: Reports: supple Lungs: Reports: Clear to auscultation, Normal respiratory effort Cardiovascular: Reports: Regular Rate, Regular Rhythm Abdomen: Reports: bowel sounds present, soft, no tenderness, no distension Back Exam: Reports: Normal Inspection, Full Range of Motion, Muscle Spasm ( right upper back) Extremities: Reports: no edema, normal pulses Skin: Reports: warm, dry, intact Neurological: Reports: no new focal deficit Psy/Mental Status: Reports: alert, normal affect, normal mood *Q Meaningful Use (DIS) - VTE *Q VTE Criteria *Q: - Stroke *Q Stroke Criteria *Q: - AMI *Q AMI Criteria *Q:
[2017-04-13] MEDS: Allopurinol 300 MG Tab PO SCH (09:00)
[2017-04-13] MEDS: amLODIPine 10 MG Tab PO SCH (09:00)
[2017-04-13] MEDS: Aspirin 81 MG Tab.Chew PO SCH (09:00)
[2017-04-13] MEDS: Magnesium Oxide 400 MG Tab PO SCH (09:01)
[2017-04-13] MEDS: HYDROCHLOROTHIAZIDE PO SCH (09:02)
[2017-04-13] MEDS: LISINOPRIL PO SCH (09:02)
[2017-04-13 09:03] VITALS: BP 114/63
[2017-04-13] MEDS: Phenytoin 100 MG Cap.ER PO SCH (09:06)
== END 2017-04-13 09:13 | disposition home or self-care (01) ==
LOC: LB.ED 07:02 → LB.MS 12:20
PROVIDERS: ADMIT Family Medicine; ATTEND Family Medicine
DX: R56.9 Unspecified convulsions (principal); E87.1 Hypo-osmolality and hyponatremia; E83.42 Hypomagnesemia; Z79.82 Long term (current) use of aspirin; Z79.899 Other long term (current) drug therapy
CPT/HCPCS: 36415; 70450; 80048; 80053; 80307; 83735; 84100; 84484; 85025; 85610; 85730; 96361; 96365; 96375; 96376; 99285; A0425; A0429; A9270; G0378; G0480; J2060; J3411; J3475; J7040; J7050; Q2009; 96360; 99217; 99220; 99225